=== PATIENT | female | born 1955 | race Caucasian/White ===

== ENCOUNTER → 2017-08-07 | Outpatient (REF) | payer BC ==
[2017-08-07 20:27] LABS: ALBUMIN 3.8 GM/DL (3.2-5.2); ALBUMIN/GLOBULIN RATIO 0.97 (1.00-1.93); ALKALINE PHOSPHATASE 98 U/L (45-117); ALT/SGPT 27 U/L (12-78); AST/SGOT 11 U/L (15-37); BILIRUBIN,DIRECT < 0.1 MG/DL (0.0-0.2); BILIRUBIN,TOTAL 0.4 MG/DL (0.2-1.0); CALCIUM LEVEL 10.1 MG/DL (8.8-10.2); CREATININE FOR GFR 1.16 MG/DL (0.55-1.02); GLOMERULAR FILTRATION RATE 50.2 (>45); TOTAL PROTEIN 7.7 GM/DL (6.4-8.2)
[2017-08-07 20:37] LABS: BASO # 0.1 10^3/uL (0.0-0.2); BASO % 0.6 % (0.0-1.0); EOS # 0.1 10^3/uL (0.0-0.50); EOS % 1.7 % (0.0-3.0); IMMATURE GRANULOCYTE % 0.2 % (0-0); LYMPH # 2.1 10^3/uL (1.5-4.5); LYMPH % 25.9 % (24.0-44.0); MEAN CORPUSCULAR HEMOGLOBIN 28.6 pg (27.0-33.0); MEAN CORPUSCULAR HGB CONC 32.4 g/dl (32.0-36.5); MEAN CORPUSCULAR VOLUME 88.5 fl (80.0-96.0); MONO # 0.6 10^3/uL (0.0-0.8); MONO % 7.6 % (0.0-5.0); NEUTROPHILS # 5.2 10^3/uL (1.8-7.7); PLATELET COUNT, AUTOMATED 289 10^3/uL (150-450); RED CELL DISTRIBUTION WIDTH 13.1 % (11.5-14.5); WHITE BLOOD COUNT 8.2 10^3/uL (4.0-10.0)
[2017-08-12 00:11] LABS: BLASTOMYCES ANTIBODY LEVEL Negative (Neg:<1:1); CRYPTOCOCCUS ANTIGEN SER Negative (Negative); HISTOPLASMOSIS ANTIBODY Negative (Neg:<1:1); VITAMIN D 1,25 DIHYDROXY 13.1 pg/mL (19.9-79.3)
[2017-08-12 07:42] LABS: COCCIDIOMYCOSIS ANTIBODY NEGATIVE (NEGATIVE)
== END ==
LOC: M LABSMT 17:15
PROVIDERS: ATTEND Internal Medicine Pulmonary Disease
DX: R91.8 Other nonspecific abnormal finding of lung field (principal)

== ENCOUNTER → 2017-09-13 | Outpatient (CLI) | payer BC ==
--- NOTE | 2017-09-13 13:07 | REP ---
Clinical: Follow-up pulmonary nodules. Comparison: 04/04/2017. Findings: A relatively grouping of multiple noncalcified nodules are identified in the right upper lobe (images 48 - 54) with the largest dominant follicle measuring approximately 11 mm appears relatively stable allowing for differences in technique. The current examination is of much higher resolution and demonstrates more 1-2 mm nodules in the same group and. No further consolidation or mass lesion is appreciated. No significant adenopathy is identified by noncontrast evaluation. The tracheobronchial tree is patent. No pleural effusion/reaction or pneumothorax. Mild atherosclerotic changes to the thoracic aorta and coronary arteries noted without aortic aneurysm or cardiomegaly. No pericardial effusion. Surrounding musculoskeletal structures are normal. Limited upper abdomen demonstrates a 2 cm benign right adrenal adenoma and suggestions for incompletely evaluated right renal cyst. Surrounding soft tissues suggest mild asymmetry to the breast tissue (left greater than right) which may warrant correlation with mammography examinations. Impression: 1. Relative grouping of noncalcified nodules in the right upper lobe remain essentially similar to prior examination allowing for differences in technique. No further significant pleuroparenchymal process is identified and findings may reflect changes related to granulomas disease. Follow-up examination in 6-9 months may be warranted. 2. Asymmetric left breast tissue should be correlated with mammography examinations. 3. 2 cm benign right adrenal adenoma and incompletely evaluated right renal rounded density suggesting cyst may warrant ultrasound correlation. Signed by Royce Hernández MD 09/13/2017 12:58 P
== END ==
LOC: M RAD 12:29
PROVIDERS: ATTEND Internal Medicine Pulmonary Disease
DX: R91.8 Other nonspecific abnormal finding of lung field (principal)

== ENCOUNTER → 2018-04-02 | Outpatient (CLI) | payer BC | LOC: M RAD 09:33 | DX: R91.8 Other nonspecific abnormal finding of lung field (principal) ==

== ENCOUNTER → 2019-01-10 | Outpatient (CLI) | payer MEDICARE ==
--- NOTE | 2019-01-10 14:51 | REP ---
Clinical: Follow up abnormal lung findings. Technique: Axial noncontrast images from the thoracic inlet to the upper abdomen with coronal and sagittal re-formations. Comparison: 04/02/2018. Findings: The dominant nodule in the periphery of the right upper lobe measuring approximately 14 mm with innumerable adjacent smaller nodularity along the bronchovascular bundle appears to be slightly more prominent and solid as compared to prior examination. Further comparison with outside examination dated 04/04/2017 demonstrates obvious enlargement. Few smaller nodules in the periphery of the right upper lobe are also identified and remain essentially stable. Subtle right hilar adenopathy cannot be excluded. No significant mediastinal lymph nodes are identified. The remainder of lung dave are relatively well aerated and clear/stable. No pleural effusion. No pneumothorax. Tracheobronchial tree is patent. Mediastinum demonstrates essentially normal thoracic aorta, pulmonary vasculature and heart/pericardium with mild atherosclerotic changes noted. Surrounding osseous structures demonstrate age-related changes without focal abnormality. Bilateral adrenal glands remains stable compared to 2017 and density suggests bilateral adenomas. Impression: 1. Most prominent dominant nodule in the right upper lobe with adjacent smaller innumerable nodules along the bronchovascular bundle have increased in size when compared with 2017 and 2018. Electronically Signed by Royce Hernández MD 01/10/2019 02:41 P
== END ==
LOC: M RAD 14:15
PROVIDERS: ATTEND Internal Medicine Pulmonary Disease
DX: R91.8 Other nonspecific abnormal finding of lung field (principal)

== ENCOUNTER → 2019-01-16 | Outpatient (REF) | payer MEDICARE ==
[2019-01-16 13:58] LABS: INR 0.95; PROTHROMBIN TIME 12.8 SECONDS (12.1-14.4)
[2019-01-16 13:59] LABS: PARTIAL THROMBOPLASTIN TIME 29.2 SECONDS (25.4-37.6)
== END ==
LOC: M LAB REF 13:02
PROVIDERS: ATTEND Internal Medicine Pulmonary Disease
DX: R91.8 Other nonspecific abnormal finding of lung field (principal)

== ENCOUNTER → 2019-01-31 | Outpatient (CLI) | payer MEDICARE ==
[~2019-01-31] MED LIST: LIDOCAINE 1% MDV 20ML VIAL As Ordered ONE
--- NOTE | 2019-01-31 12:27 | REP ---
Chest x-ray: Single PA view. History: Post biopsy evaluation. The patient is status post right middle lobe needle biopsy under CT guidance. CT findings: There is a small right apical pneumothorax visible with a thin sliver of apical pleural air. A nodular opacity is seen in the right mid lung field. Lung dave are otherwise clear. Impression: Small right apical pneumothorax. Electronically Signed by Thomas Mustafa MD 01/31/2019 01:25 P
--- NOTE | 2019-01-31 13:57 | REP ---
PA chest x-ray: 01:02 p.m. film. History: Followup small right-sided post biopsy pneumothorax. Comparison radiograph is from 11:24 a.m. on this same date. Findings: A tiny right apical pneumothorax is again seen unchanged from the earlier film. No other finding. Impression: Stable very small right apical pneumothorax. Electronically Signed by Thomas Mustafa MD 01/31/2019 05:11 P
--- NOTE | 2019-01-31 17:19 | REP ---
CT-guided right middle lobe lung biopsy The procedure was performed under the direct supervision of Dr. Mustafa. The patient has a history of a nodule in the right middle lobe seen on a previous CT scan dated 01/10/2019. The risks and benefits of the procedure were explained to the patient and informed consent was obtained. The right middle lobe lung nodule was localized using CT guidance. The skin was prepped and draped in a sterile fashion. 1% lidocaine was used as a local anesthetic. Using CT guidance a 19/20 gauge coaxial needle biopsy system was inserted and advanced into the nodule. Four core biopsy samples were obtained and sent to lab. Images obtained after biopsy show a small right pneumothorax. The patient's O2 sats were 90% on room air as when she arrived. The patient stated that she had no pain. She was placed on 2 liters of O2 via nasal cannula. Chest x-ray performed immediately after the procedure demonstrates a small right apical pneumothorax. Chest x-ray performed 2 hours later shows a stable very small right apical pneumothorax. The patient's vital signs and O2 saturations were at baseline. The patient still stated she had no pain. After the appropriate amount of monitored convalescence the patient was discharged from the department. Reviewed by SHAMEKA Atkins 01/31/2019 05:08 P Electronically Signed by Thomas Mustafa MD 01/31/2019 05:10 P
== END ==
LOC: M RADPRO 09:31
PROVIDERS: ATTEND Internal Medicine Pulmonary Disease
DX: R91.8 Other nonspecific abnormal finding of lung field (principal); J95.811 Postprocedural pneumothorax

== ENCOUNTER → 2019-02-11 | Outpatient (CLI) | payer MEDICARE ==
[2019-02-11 13:28] LABS: ALBUMIN 3.4 GM/DL (3.2-5.2); ALT/SGPT 29 U/L (12-78); BILIRUBIN,DIRECT < 0.1 MG/DL (0.0-0.2); BILIRUBIN,TOTAL 0.4 MG/DL (0.2-1.0); TOTAL PROTEIN 7.6 GM/DL (6.4-8.2)
== END ==
LOC: M SMT 10:21
PROVIDERS: ATTEND Internal Medicine Pulmonary Disease
DX: R91.8 Other nonspecific abnormal finding of lung field (principal)

== ENCOUNTER → 2019-03-04 | Outpatient (REF) | payer BC ==
[2019-03-04 14:09] LABS: BASO # 0.1 10^3/uL (0.0-0.2); BASO % 0.6 % (0.0-1.0); EOS # 0.1 10^3/uL (0.0-0.50); EOS % 1.5 % (0.0-3.0); HEMATOCRIT 44.4 % (36.0-47.0); HEMOGLOBIN 14.3 g/dl (12.0-15.5); LYMPH # 1.8 10^3/uL (1.5-4.5); MEAN CORPUSCULAR HEMOGLOBIN 27.9 pg (27.0-33.0); MEAN CORPUSCULAR HGB CONC 32.2 g/dl (32.0-36.5); MEAN CORPUSCULAR VOLUME 86.5 fl (80.0-96.0); MONO # 0.7 10^3/uL (0.0-0.8); MONO % 7.3 % (0.0-5.0); NEUTROPHILS # 6.3 10^3/uL (1.8-7.7); NEUTROPHILS % 70.3 % (36.0-66.0); PLATELET COUNT, AUTOMATED 285 10^3/uL (150-450); RED BLOOD COUNT 5.13 10^6/uL (4.00-5.40); WHITE BLOOD COUNT 8.9 10^3/uL (4.0-10.0)
[2019-03-04 19:02] LABS: ALBUMIN 3.5 GM/DL (3.2-5.2); ALT/SGPT 28 U/L (12-78); BILIRUBIN,TOTAL 0.5 MG/DL (0.2-1.0); BLOOD UREA NITROGEN 29 MG/DL (7-18); C REACTIVE PROTEIN QUANTITATIV 1.78 MG/DL (0.00-0.30); CALCIUM LEVEL 9.6 MG/DL (8.8-10.2); CARBON DIOXIDE LEVEL 27 MEQ/L (21-32); CHLORIDE LEVEL 103 MEQ/L (98-107); CREATININE FOR GFR 1.12 MG/DL (0.55-1.30); GLUCOSE, FASTING 94 MG/DL (70-100); HIV 1&2 SCREEN CENTAUR NEGATIVE (NEGATIVE); POTASSIUM SERUM 3.9 MEQ/L (3.5-5.1); SODIUM LEVEL 139 MEQ/L (136-145); TOTAL PROTEIN 7.8 GM/DL (6.4-8.2)
[2019-03-04 20:02] LABS: IMMUNOGLOBULIN G 1220 MG/DL (681-1648)
[2019-03-07 14:10] LABS: HISTOPLASMOSIS ANTIBODY Negative (Neg:<1:1)
== END ==
LOC: M SFHCPLAZ 10:56
PROVIDERS: ATTEND Internal Medicine Infectious Disease
DX: B39.2 Pulmonary histoplasmosis capsulati, unspecified (principal)
CPT/HCPCS: 36415; 80053; 82784; 85025; 86140; 86698; 87385; 87389; G0480

== ENCOUNTER → 2019-04-22 | Outpatient (REF) | payer BC ==
[2019-04-22 13:22] LABS: BASO % 0.4 % (0.0-1.0); EOS # 0.2 10^3/uL (0.0-0.50); EOS % 2.1 % (0.0-3.0); HEMATOCRIT 44.4 % (36.0-47.0); HEMOGLOBIN 14.4 g/dl (12.0-15.5); LYMPH # 1.6 10^3/uL (1.5-4.5); LYMPH % 17.9 % (24.0-44.0); MEAN CORPUSCULAR HEMOGLOBIN 28.2 pg (27.0-33.0); MEAN CORPUSCULAR HGB CONC 32.4 g/dl (32.0-36.5); MEAN CORPUSCULAR VOLUME 86.9 fl (80.0-96.0); MONO # 0.7 10^3/uL (0.0-0.8); MONO % 7.4 % (0.0-5.0); NEUTROPHILS # 6.5 10^3/uL (1.8-7.7); NEUTROPHILS % 71.7 % (36.0-66.0); PLATELET COUNT, AUTOMATED 273 10^3/uL (150-450); RED BLOOD COUNT 5.11 10^6/uL (4.00-5.40); WHITE BLOOD COUNT 9.1 10^3/uL (4.0-10.0)
[2019-04-22 13:42] LABS: ALBUMIN 3.4 GM/DL (3.2-5.2); BILIRUBIN,DIRECT 0.1 MG/DL (0.0-0.2); BILIRUBIN,TOTAL 0.5 MG/DL (0.2-1.0); C REACTIVE PROTEIN QUANTITATIV 1.7 MG/DL (0.00-0.30); TOTAL PROTEIN 7.3 GM/DL (6.4-8.2)
== END ==
LOC: M SFHCPLAZ 11:33
PROVIDERS: ATTEND Internal Medicine Infectious Disease
DX: B39.2 Pulmonary histoplasmosis capsulati, unspecified (principal)
CPT/HCPCS: 36415; 80076; 85025; 86140; G0480

== ENCOUNTER → 2019-06-25 | Outpatient (REF) | payer BC ==
[2019-06-25 13:20] LABS: BASO % 0.3 % (0.0-1.0); EOS # 0.1 10^3/uL (0.0-0.5); EOS % 1.6 % (0.0-3.0); HEMOGLOBIN 13.5 g/dl (12.0-15.5); LYMPH # 1.6 10^3/uL (1.5-5.0); MEAN CORPUSCULAR HEMOGLOBIN 27.5 pg (27.0-33.0); MEAN CORPUSCULAR HGB CONC 32.1 g/dl (32.0-36.5); MEAN CORPUSCULAR VOLUME 85.5 fl (80.0-96.0); MONO # 0.6 10^3/uL (0.0-0.8); MONO % 7.5 % (0.0-5.0); NEUTROPHILS # 6.2 10^3/uL (1.5-8.5); NEUTROPHILS % 72.1 % (36.0-66.0); PLATELET COUNT, AUTOMATED 261 10^3/uL (150-450); RED BLOOD COUNT 4.91 10^6/uL (4.00-5.40); WHITE BLOOD COUNT 8.6 10^3/uL (4.0-10.0)
[2019-06-25 14:14] LABS: ALBUMIN 3.3 GM/DL (3.2-5.2); BILIRUBIN,DIRECT 0.1 MG/DL (0.0-0.2); BILIRUBIN,TOTAL 0.5 MG/DL (0.2-1.0); C REACTIVE PROTEIN QUANTITATIV 1.39 MG/DL (0.00-0.30)
== END ==
LOC: M SFHCPLAZ 10:43
PROVIDERS: ATTEND Internal Medicine Infectious Disease
DX: B39.2 Pulmonary histoplasmosis capsulati, unspecified (principal)
CPT/HCPCS: 36415; 80076; 85025; 86140; G0480

== ENCOUNTER → 2019-08-15 | Outpatient (CLI) | payer MEDICARE ==
--- NOTE | 2019-08-15 09:25 | REP ---
Clinical: Follow up abnormal lung findings. Technique: Axial noncontrast images from the thoracic inlet to the upper abdomen with coronal and sagittal re-formations. Comparison: 01/10/2019. Findings: Irregular noncalcified nodular densities identified within the right middle lobe including the largest lesion measuring approximately 15 mm along with smaller adjacent satellite nodules remain unchanged compared to prior examination. Remainder of the bilateral lung dave are well-aerated and clear and no further consolidation, nodule or mass lesion is appreciated. No pleural effusion. No pneumothorax. No obvious adenopathy. Tracheobronchial tree is patent. Mediastinum demonstrates normal thoracic aorta, pulmonary vasculature and heart/pericardium. Minimal atherosclerotic changes incidentally noted. Musculoskeletal structures are intact. Limited upper abdomen demonstrates stable bilateral adrenal lesions compatible with adenoma. Impression: 1. Stable nodules confined to the right middle lobe unchanged from prior examination. No associated adenopathy or effusion. 2. No new acute mediastinal or pleuroparenchymal process appreciated. 3. Stable benign adrenal adenomas. Electronically Signed by Royce Hernnádez MD 08/15/2019 09:17 A
== END ==
LOC: M RAD 08:52
PROVIDERS: ATTEND Internal Medicine Pulmonary Disease
DX: R91.8 Other nonspecific abnormal finding of lung field (principal)

== ENCOUNTER → 2019-09-09 | Outpatient (REF) | payer BC ==
[2019-09-09 11:43] LABS: BASO # 0.1 10^3/uL (0.0-0.2); BASO % 0.6 % (0.0-1.0); EOS # 0.1 10^3/uL (0.0-0.5); EOS % 1.2 % (0.0-3.0); HEMATOCRIT 43.4 % (36.0-47.0); HEMOGLOBIN 13.6 g/dl (12.0-15.5); LYMPH # 1.2 10^3/uL (1.5-5.0); LYMPH % 14.8 % (24.0-44.0); MEAN CORPUSCULAR HEMOGLOBIN 27.4 pg (27.0-33.0); MEAN CORPUSCULAR HGB CONC 31.3 g/dl (32.0-36.5); MEAN CORPUSCULAR VOLUME 87.3 fl (80.0-96.0); MONO # 0.7 10^3/uL (0.0-0.8); MONO % 8.2 % (0.0-5.0); NEUTROPHILS # 6.2 10^3/uL (1.5-8.5); NEUTROPHILS % 74.6 % (36.0-66.0); PLATELET COUNT, AUTOMATED 280 10^3/uL (150-450); RED BLOOD COUNT 4.97 10^6/uL (4.00-5.40); WHITE BLOOD COUNT 8.3 10^3/uL (4.0-10.0)
[2019-09-09 12:15] LABS: ALBUMIN 3.1 GM/DL (3.2-5.2); BILIRUBIN,DIRECT 0.2 MG/DL (0.0-0.2); BILIRUBIN,TOTAL 0.6 MG/DL (0.2-1.0); C REACTIVE PROTEIN QUANTITATIV 1.59 MG/DL (0.00-0.30); TOTAL PROTEIN 6.8 GM/DL (6.4-8.2)
[2019-09-09 12:32] LABS: ERYTHROCYTE SEDIMENTATION RATE 35 mm/hr (0-30)
== END ==
LOC: M SFHCPLAZ 10:15
PROVIDERS: ATTEND Internal Medicine Infectious Disease
DX: B39.2 Pulmonary histoplasmosis capsulati, unspecified (principal)

== ENCOUNTER → 2020-02-24 | Outpatient (CLI) | payer MEDICARE ==
--- NOTE | 2020-02-24 11:58 | REP ---
REASON: Followup pulmonary nodules. All priors reviewed, the latest 08/15/2019. Mediastinum and pulmonary kelley are unchanged. There is no mass or adenopathy. The imaged upper abdomen and imaged osseous structures are essentially unchanged. Evaluation of the lung dave shows multiple right middle lobe nodules status quo. No new abnormal nodules, masses, or opacities have developed. IMPRESSION: Stable CT examination of the chest. Electronically Signed by Sebas Mistry DO 02/24/2020 12:51 P
== END ==
LOC: M RAD 10:53
PROVIDERS: ATTEND Internal Medicine Pulmonary Disease
DX: R91.8 Other nonspecific abnormal finding of lung field (principal)

== ENCOUNTER → 2021-03-23 | Outpatient (CLI) | payer MEDICARE ==
--- NOTE | 2021-03-24 05:00 | REP ---
INDICATION: ABN FINDINGS OF LUNG FIELD COMPARISON: Multiple examinations from 02/24/2020 through 09/13/2017 TECHNIQUE: Axial noncontrast images from the thoracic inlet to the upper abdomen with coronal and sagittal reformations. This CT examination was performed using the following dose reduction techniques: Automated exposure control, adjustment of mA and/or kv according to the patient's size, and use of iterative reconstruction technique. FINDINGS: Clusters of nodules are identified within the right middle lobe and inseparable from the minor fissure relatively unchanged through prior examinations. Remainder of lung dave are well aerated and clear. No further acute consolidation, new nodule or mass lesion. No effusion. No pneumothorax. Tracheobronchial tree is patent. No obvious adenopathy noted. Mediastinum demonstrates stable atherosclerotic changes to the thoracic aorta and coronary arteries without aortic aneurysm or cardiomegaly. No pericardial effusion. Surrounding musculoskeletal structures are intact. IMPRESSION: Stable cluster of nodules in the right middle lobe essentially unchanged through . No new acute mediastinal or pleuroparenchymal process appreciated. <Electronically signed by Royce Hernández > 03/24/21 [id number]
== END ==
LOC: M RAD 10:54
PROVIDERS: ATTEND Nurse Practitioner Adult Health
DX: R91.8 Other nonspecific abnormal finding of lung field (principal)

== ENCOUNTER → 2024-01-08 | Outpatient (CLI) | payer OTHER | LOC: M RAD 14:55 | PROVIDERS: ATTEND Physician Assistant Medical | DX: R91.8 Other nonspecific abnormal finding of lung field (principal) ==

== ENCOUNTER → 2024-01-17 | Outpatient (CLI) | payer OTHER | LOC: M WHC 13:41 | PROVIDERS: ATTEND Physician Assistant Medical | DX: N83.299 Other ovarian cyst, unspecified side (principal) ==

== ENCOUNTER → 2024-02-12 | Outpatient (CLI) | payer OTHER | LOC: M WHC 10:17 | PROVIDERS: ATTEND Physician Assistant Medical | DX: N83.291 Other ovarian cyst, right side (principal) ==

== ENCOUNTER → 2024-05-10 | Outpatient (CLI) | payer OTHER | LOC: M WHC 11:18 | PROVIDERS: ATTEND Physician Assistant Medical | DX: N83.201 Unspecified ovarian cyst, right side (principal); N83.202 Unspecified ovarian cyst, left side ==

== ENCOUNTER 2024-10-02 07:30 | Day surgery (SDC) | payer OTHER ==
[~2024-10-02] VITALS: Ht 162.6 cm; Wt 114.3 kg
[~2024-10-02 07:30] MED LIST changes: +ATOR1TAB21 PO; +CIDA500T2 PO; +HYDR50TAB PO; -LIDOCAINE 1% MDV 20ML VIAL As Ordered ONE; +LOSA100T46 PO; +MELO7.5T35 PO; +OMEG10002 PO; +VITA100093 PO; +[UNRECOGNIZED DRUG - REMARK]
[2024-10-02] MEDS ORDERED: LIDOCAINE 2% 100MG/5ML SDV (FOR ANES.) As Ordered ONE (08:16)
[2024-10-02] MEDS ORDERED: propofoL 200 MG/20 ML VIAL As Ordered ONE (08:16)
[2024-10-02] MEDS ORDERED: fentaNYL 100 MCG/2 ML INJECTION As Ordered ONE (08:16)
[2024-10-02 10:00] VITALS: BP 106/53; TEMP 97.8; O2SAT 94
== END 2024-10-02 10:14 | disposition home or self-care (01) ==
LOC: M OPP 07:30
PROVIDERS: ATTEND Internal Medicine Gastroenterology
DX: D12.2 Benign neoplasm of ascending colon (principal); K57.30 Diverticulosis of large intestine without perforation or abscess without bleeding; R12 Heartburn; I10 Essential (primary) hypertension; E78.5 Hyperlipidemia, unspecified; M19.90 Unspecified osteoarthritis, unspecified site; Z79.899 Other long term (current) drug therapy
CPT/HCPCS: 43239; 45385; 88305; J3010